=== PATIENT | male | born 1965 | race Caucasian/White ===

== ENCOUNTER 2024-11-11 14:19 | Emergency (ER) | payer MEDICAID, SELFPAY ==
--- OUTSIDE RECORDS SUMMARY | 2024-11-11 14:21 | XMS_ITS | Clinical Summary ---
Author Organization [facility] Address [place], [place] [address] Care Team Providers Care Progress Developer Name Role Phone Pcp, No Primary Care Provider Unavailabl e Allergies No known active allergies Medications No known medications Resolved Problems Problem Noted Date Diagnosed Date Resolved Date FOREIGN BODY, CORNEA-OD 05/12/200310/06 Immunizations Name Administration Dates Next Due Tdap 05/05/2011 Social History Tobacco Use Types Packs/Day Years Used Date Smoking Tobacco: Never Smokeless Tobacco: Current Chew Alcohol Use Standard Drinks/Week Comments Not Asked 0 (1 standard drink = 0.6 oz pur e alcohol) Sex and Gender Information Value Date Recorded Sex Assigned at Not on file 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 Gender Identity Not on file Sexual Orientation Not on file Obstetrics History Last Filed Vital Signs Vital Sign Reading Time Taken Comments Blood Pressure 136/73 05/05/2011 4:12 PM CDT Pulse 62 05/05/2011 4:12 PM CDT Temperature 36.6 C (97.9 F) 05/05/2011 4:12 PM CDT Respiratory Rate - - Oxygen Saturation - - Inhaled Oxygen Concentration - - Weight 84.9 kg (187 lb 3.2 oz) 05/05/2011 4:12 P M CDT Height - - Body Mass Index - - Plan of Treatment Health Maintenance Due Date Last Done Comments Depression screening for age 12+ 1976 HIV for age 15-65 1979 BMI (ht and wt on same day) for age 18+ 1982 Hepatitis C screening for ag e 18-79 1982 Colonoscopy through age 75 2009 Lipids for age 45-75 2009 Pneumococcal series for age 50+ (1 of 1 - PCV) 2014 Zoster (shingles) series for age 50+ (1 of 2) 2014 Tetanus booster 05/05/2021 05/05/2011 COVID-19 vaccine series ( season) 2024 Influenza for age 50-64 06/05/2024 RSV vaccine for adults or (1 - 1-dose 75+ series) 2039 Tdap Completed 05/05/2011 Pneumococcal series for age 6-49 Aged Out No longer eligible based on patient's age to complete this topic Care Teams Progress Developer Relationship Specialty Start Date End Date Pcp, No . PCP - General 05/05/11
[2024-11-11 14:58] VITALS: BP 233/121; PULSE 68; RESP 16; TEMP 36.9; O2SAT 98; BMI 28.9
--- NOTE | 2024-11-11 15:31 | ED.GENADULT ---
HPI - General Adult General Chief complaint: Hypertension Stated complaint: High BP Time Seen by Provider: 11/11/24 15:17 History of Present Illness HPI narrative: This 59-year-old male came into clinic today and while checking vital signs and noted that his blood pressure was elevated to around 230 so he was immediately sent here. He did not see a provider there apparently. He states that he checked his blood pressure at home and it was around 220. He is not on any medications. He states that he has not been feeling quite right since the past 3 or 4 months after having an upper respiratory infection. He denies having any nausea, vomiting, lightheadedness, shortness of breath, diaphoresis, or exercise intolerance. 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 He does report a mild headache and has some ringing in his ear. Related Data Previous Rx's ?Medication ?Instructions ?Recorded hydrochlorothiazide 25 mg tablet 25 mg PO QAM #30 tabs 11/11/24 Allergies Allergy/AdvReac Type Severity Reaction Status Date / Time No Known Allergies Allergy Unknown Verified 11/11/24 15:02 Review of Systems Status of ROS: Reports: 10 or more systems reviewed and unremarkable except as noted in History and below Narrative: Constitutional: No fevers, no weight gain or loss. Eyes: No discharge. No vision changes. HENT: No congestion, no sore throat, no ear pain. Cardiovascular: No chest pain, no palpitations. Respiratory: No shortness of breath, no wheezes, no cough. Gastrointestinal: No abdominal pain, no vomiting, no diarrhea. Genitourinary: No dysuria, no hematuria. Musculoskeletal: Normal range of motion. Skin: No rashes, no pruritis. Neurological: No dizziness, weakness, sensory change, speech change. Endo/Heme/Allergies: No bruising or bleeding. No polydipsia. Pysch: no suicidality, no anxiety, no insomnia. All other systems reviewed and are negative. PFSH PFSH Social History Smoking Status: Never smoker Do you use any of these nicotine containing products: None How often do you have a drink containing alcohol: monthly or less How often do you have six or more drinks on one occasion: Never AUDIT-C Alcohol total score: 1 Non-prescribed substance use: denies use Exam Narrative: Exam Narrative: Constitutional: Well-developed, well-nourished, no acute distress. HEENT: Normocephalic, atraumatic. Neck: Normal range of motion. Nontender. Supple. Heart: Regular. No murmurs. Normal rate. Intact distal pulses. Lungs: Clear to auscultation. No chest discomfort. No wheezes, rhonchi, or rales. Abdomen: Normal bowel sounds. Nontender. No rebound tenderness. Genitalia: Deferred. Back: No midline tenderness. Normal range of motion. Extremities: Normal range of motion. No injury. Skin: Intact. No rash. Warm. No erythema or pallor. Neurologic: No altered sensation. No weakness. Alert and oriented. Psychiatric: No suicidality. No anxiety or depression. No insomnia. Nursing notes and vitals signs are reviewed. Const: Vital Signs, click to edit/add: Vital Signs - 24 hr 11/11/24 14:58 11/11/24 16:19 Temperature 98.4 F Pulse Rate [Pulse Oximeter] 68 Respiratory Rate 16 Blood Pressure [Ri ght Upper Arm] 233/121 H 206/112 H Pulse Oximetry 98 Oxygen Delivery Me thod Room Air Course Vital Signs Vital signs: Initial Vital Signs Temperature 98.4 F 11/11/24 14:58 Temperature Source Temporal Artery Scan 11/11/24 14:58 Pulse Rate 68 11/11/24 14:58 Respiratory Rate 16 11/11/24 14:58 Blood Pressure 233/121 H 11/11/24 14:58 Blood Pressure Mean 158 H 11/11/24 14:58 Blood Pressure Position Sitting 11/11/24 14:58 Pulse Oximetry 98 11/11/24 14:58 Oxygen Delivery Method Room Air 11/11/24 14:58 Vital Signs Temperature 98.4 F 11/11/24 14:58 Pulse Rate 68 11/11/24 14:58 Respiratory Rate 16 11/11/24 14:58 Blood Pressure 233/121 H 11/11/24 14:58 Pulse Oximetry 98 11/11/24 14:58 Oxygen Delivery Method Room Air 11/11/24 14:58 Temperature 98.4 F 11/11/24 14:58 Pulse Rate 68 11/11/24 14:58 Respiratory Rate 16 11/11/24 14:58 Blood Pressure 206/112 H 11/11/24 16:19 Pulse Oximetry 98 11/11/24 14:58 Oxygen Delivery Method Room Air 11/11/24 14:58 Medications Administered Medications: Discontinued Medications Generic Name Dose Route Start Last Admin Trade Name Abdelrahman PRN Reason Stop Dose Admin Clonidine HCl 0.2 mg 11/11/24 15:30 11/11/24 15:59 Clonidine Hcl 0.1 Mg Tablet PO 11/11/24 15:31 0.2 mg ONCE ONE Administration Medical Decision Making MDM Narrative Medical decision making narrative: This patient is sent here after checking in at clinic because blood pressure was elevated. He does not report any significant symptoms but did arrive with a systolic pressure at 233. He is not showing any neurologic deficits. Labs are acquired and these returned with normal results including a troponin that is at 0. His EKG is also reassuring but there was some possibility of ischemia with some lateral T-wave inversions. The patient does not report any chest pain and does not have any exercise intolerance. He did receive a tablet of clonidine 0.2 mg and his blood pressure came down about 30 points. I advised him to follow up with an appointment with his primary physician for ongoing management of his blood pressure. I did provide a prescription for hydrochlorothiazide. Lab Data Labs: Lab Results 11/11/24 Range/Units 15:46 WBC 5.05 (4.50-11.00) K/uL RBC 5.01 (4.30-5.90) m/uL Hgb 14.4 (13.5-17.5) gm/dL Hct 43.0 (37.0-53.0) % MCV 86 (80-100) fL MCH 29 (26-34) pg MCHC 34 (32-36) gm/dL RDW Coeff of Mya 13.0 (11.5-15.5) % Plt Count 182 (140-440) K/uL Neut % (Auto) 70.9 (42.0-72.0) % Lymph % (Auto) 18.4 L (20-44) % [place] % (Auto) 8.5 (0.0-11.0) % Eos % (Auto) 1.6 (0.0-7.0) % Baso % (Auto) 0.4 (0.0-3.0) % Neut # (Auto) 3.58 (1.7-7.0) K/uL Lymph # (Auto) 0.90 (0.90-2.90) K/uL [place] # (Auto) 0.40 (0.00-0.90) K/UL Eos # (Auto) 0.08 (0.00-0.50) K/uL Baso # (Auto) 0.02 (0.00-0.30) K/uL Abs Immat Gran (auto) 0.01 (0.00-0.30) K/uL Imm/Tot Granulo (auto) 0.2 % Sodium 137 (135-149) mmol/L Potassium 4.1 (3.6-5.1) mmol/L Chloride 101 (96-114) mmol/L Carbon Dioxide 32 (20-32) mmol/L Anion Gap 4 L (7-15) mEq/L BUN 15 (7-30) mg/dL Creatinine 0.8 (0.5-1.5) mg/dL Estimated Creat Clear 107.78 Estimated GFR 101 ml/min Glucose 91 (60-115) mg/dL Calcium 9.2 (8.4-10.6) mg/dL Troponin I 0.01 (0.01-0.04) ng/mL ECG Data Attestation: I personally reviewed and interpreted this ECG as follows: Interpretation: Normal sinus rhythm. Rate is 61 beats per minute. T-wave inversion in the lateral leads. Discharge Plan Discharge Clinical Impression: Elevated blood pressure reading Patient Disposition: Home, Self-Care Condition: Stable Additional Instructions: Take medication as prescribed and follow-up with primary physician for ongoing management. Prescriptions: New hydrochlorothiazide 25 mg tablet 25 mg PO QAM Qty: 30 2RF Follow Up/Referrals: Provider,Not a Local [Primary Care Provider] - Stand Alone Forms: [employer] Info Instructions
--- OUTSIDE RECORDS SUMMARY | 2024-11-11 15:49 | XMS_ITS | Clinical Summary ---
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 PCP - General 05/05/11
[2024-11-11 15:56] LABS: Basophils Absolute Auto 0.02 K/uL (0.00-0.30); Basophils Percent Auto 0.4 % (0.0-3.0); Eosinophils Absolute Auto 0.08 K/uL (0.00-0.50); Eosinophils Percent Auto 1.6 % (0.0-7.0); Hemoglobin* 14.4 gm/dL (13.5-17.5); Immature Granulocytes Abs Auto 0.01 K/uL (0.00-0.30); Immature Granulocytes Pct Auto 0.2 %; Lymphocytes Percent Auto 18.4 % (20-44); Mean Corpuscular HGB Conc 34 gm/dL (32-36); Mean Corpuscular Hemoglobin 29 pg (26-34); Mean Corpuscular Volume 86 fL (80-100); Monocytes Percent Auto 8.5 % (0.0-11.0); Neutrophils Absolute Auto 3.58 K/uL (1.7-7.0); Neutrophils Percent Auto 70.9 % (42.0-72.0); Platelet Count* 182 K/uL (140-440); Red Blood Count 5.01 m/uL (4.30-5.90); White Blood Count* 5.05 K/uL (4.50-11.00)
[2024-11-11] MEDS: cloNIDine HCL 0.1 MG TABLET 0.2 MG PO (15:59)
[2024-11-11 16:06] LABS: Chloride* 101 mmol/L (96-114); Potassium* 4.1 mmol/L (3.6-5.1)
[2024-11-11 16:09] LABS: Anion Gap 4 mEq/L (7-15); Blood Urea Nitrogen* 15 mg/dL (7-30); Carbon Dioxide* 32 mmol/L (20-32); Creatinine* 0.8 mg/dL (0.5-1.5); Est. Creatinine Clearance* 107.78; Estimated Glomerular Filt Rate 101 ml/min; Glucose* 91 mg/dL (60-115); Slide Review Reflex No; Sodium* 137 mmol/L (135-149)
[2024-11-11 16:10] LABS: Calcium* 9.2 mg/dL (8.4-10.6)
[2024-11-11 16:19] VITALS: BP 206/112
[2024-11-11 16:25] LABS: Troponin I* 0.01 ng/mL (0.01-0.04)
--- OUTSIDE RECORDS SUMMARY | 2024-11-14 15:38 | XMS_ITS | Clinical Summary ---
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 PCP - General 05/05/11
== END 2024-11-11 16:49 | disposition home or self-care (01) ==
PROVIDERS: Emergency Provider Emergency Medicine Emergency Medical Services
DX: I10 Essential (primary) hypertension (principal)
CPT/HCPCS: 36415; 80048; 84484; 85025; 93005; 99283; 99284

== ENCOUNTER 2024-11-17 11:29 | Outpatient (CLI) | payer MEDICAID, SELFPAY | END 2024-11-17 11:30 | disposition home or self-care (01) | LOC: FRMREF 11:32 | PROVIDERS: PCP Nurse Practitioner Family; Visit Provider Nurse Practitioner Family | DX: I10 Essential (primary) hypertension (principal); Z13.6 Encounter for screening for cardiovascular disorders; Z12.5 Encounter for screening for malignant neoplasm of prostate | CPT/HCPCS: 80061; 82043; 82570; G0103 ==